=== PATIENT | male | born 1950 | race Two or more races ===

== ENCOUNTER 2023-01-07 16:20 | Outpatient (CLI) | payer OTHER | END 2023-01-07 16:21 | disposition home or self-care (01) | LOC: LAB 16:20 | PROVIDERS: ATTEND Urology | DX: R97.20 Elevated prostate specific antigen [PSA] (principal) ==

== ENCOUNTER 2023-01-24 07:07 | Outpatient (CLI) | payer OTHER | END 2023-01-24 07:15 | disposition home or self-care (01) | LOC: SONOGRAMA 07:07 | PROVIDERS: ATTEND Urology | DX: C61 Malignant neoplasm of prostate (principal); D29.1 Benign neoplasm of prostate; N41.1 Chronic prostatitis; R97.20 Elevated prostate specific antigen [PSA] ==

== ENCOUNTER 2024-04-21 07:14 | Outpatient (CLI) | payer OTHER | END 2024-04-21 07:17 | disposition home or self-care (01) | LOC: SONOGRAMA 07:14 | PROVIDERS: ATTEND Urology | DX: C61 Malignant neoplasm of prostate (principal); N40.1 Benign prostatic hyperplasia with lower urinary tract symptoms; R97.20 Elevated prostate specific antigen [PSA] ==